=== PATIENT | female | born 1975 | race Asian ===

== ENCOUNTER 2019-11-02 14:21 | Emergency (ER) | payer OTHER, SELFPAY ==
--- NOTE | 2019-11-02 14:41 | ED.GENADULT ---
HPI - General Adult General Chief complaint: Shortness of Breath/Dyspnea Stated complaint: Hard time swallowing/ higher heart rate Time Seen by Provider: 11/02/19 14:27 Source: patient Mode of arrival: Ambulatory Limitations: no limitations History of Present Illness HPI narrative: 44-year-old female here for evaluation of palpitations and problems swallowing. She states that her symptoms happened last night and continued throughout the evening. She states she feels better now than which she did last evening. She did have the ENTs come and evaluate her and they did an EKG and she was told that it was unremarkable. She has had symptoms like this in the past. Has seen her primary doctor. Was sent in to see Ear Nose and Throat for the dysphagia issues and was told that everything was fine. She does have an appointment scheduled for speech pathology however has not scheduled this appointment as of yet. Related Data Previous Rx's Medication Instructions Recorded lorazepam [Ativan] 0.5 mg PO BID PRN #7 tab 11/02/19 Allergies Allergy/AdvReac Type Severity Reaction Status Date / Time oxycodone [OXYCODONE] AdvReac Intermediate dizziness/n Unverified 03/09/18 14:19 ausea Review of Systems Constitutional Constitutional: Denies chills, Denies fatigue and Denies fever(s) ENT Ears, Nose, Mouth, and Throat: Reports dysphagia and Denies sore throat Cardiovascular Cardiovascular: Denies chest pain and Denies dyspnea Respiratory Respiratory: Denies dyspnea Gastrointestinal Gastrointestinal: Denies abdominal pain, Reports dysphagia, Denies nausea and Denies vomiting Musculoskeletal Musculoskeletal: Denies myalgias and Denies arthralgias Integumentary/Breasts Skin/Breast: Denies lesions and Denies rash Endocrine Endocrine: Denies fatigue Hematologic/Lymphatic Hematologic/Lymphatic: Denies easy bleeding and Denies easy bruising Patient History Medical History Fibroid uterus (Inactive) Menorrhagia (Inactive) UTI (urinary tract infection) (Inactive) Surgical History (Updated 03/03/18 @ 10:52 by Leah Chaney) History of gynecologic surgery (Resolved) History of third molar tooth extraction (Resolved 09/28/15) Family History Father No problems noted. Social History Smoking Status: Never smoker Smoking Status: Never smoker Exam Initial Vital Signs Initial Vital Signs: Vital Signs Temperature 99.0 F 11/02/19 14:42 Pulse Rate 93 H 11/02/19 14:42 Respiratory Rate 18 11/02/19 14:42 Blood Pressure 125/87 11/02/19 14:42 Pulse Oximetry 100 11/02/19 14:42 Const General: cooperative and comfortable Limitations: mental status not altered HENMT Head: normal to inspection and normocephalic Nose: external nose normal Neck Neck: full ROM and no meningeal signs Thyroid: thyroid normal Lymphatic: No lymphadenopathy Resp Effort & Inspection: normal respiratory effort Auscultation: clear to auscultation bilaterally Cardio Rate: regular rate Rhythm: regular rhythm GI Inspection: non-distended Palpation: soft and No firm Skin Lesions: no lesions Rashes: no rashes Neuro General: alert and awake Speech: speech normal Extrem General: normal to inspection and capillary refill normal Course Orders Ordered: ED Orders 11/02/19 14:30 EKG-12 Lead Stat 11/02/19 15:24 XR soft tissue neck Stat Vital Signs Vital signs: Vital Signs - 8 hr 11/02/19 14:42 11/02/19 15:32 Temperature 99.0 F Pulse Rate 93 H 94 H Respiratory Rate 18 16 Blood Pressure 125/87 Blood Pressure [Left Arm] 117/84 Pulse Oximetry 100 99 Medical Decision Making Imaging Data XR soft tissue neck: Radiologist's Impression: [address] [address] XRay Report Signed Patient: Gopal Cruz [facility]#: [id number] : 1975Acct:[id number] Age/Sex: 44 / FDate of Service: 11/02/19 Loc: ED Accession Number: [id number] Procedure: XR soft tissue neck Ordering Provider: Matthew Brand D.O. PROCEDURE: XR SOFT TISSUE NECK INDICATIONS: Dysphasia TECHNIQUE: 2 views of the neck were acquired. COMPARISON: None. FINDINGS: Airway: The airway appears patent. Soft tissues: Prevertebral soft tissues are normal in thickness. The epiglottis and aryepiglottic folds appear normal. No soft tissue gas. Bones: No suspicious bony lesions. Visualized cervical spine is normally aligned. IMPRESSION: No gross neck soft tissue swelling. Airway is patent. Dictated by: Darwin Kulkarni M.D. on 11/02/2019 at 15:54 Approved by: Darwin Kulkarni M.D. on 11/02/2019 at 15:57 ECG Data Attestation: I personally reviewed and interpreted this ECG as follows: Prior ECG tracings: not available for review Interpretation: Sinus rhythm Ventricular rate 85 Normal QRS Normal QTC No ST T wave changes MDM Narrative Medical decision making narrative: Is nontoxic, tolerating her own secretions, clear lungs, EKG is unremarkable, informed the patient that she should talk with her primary doctor about a Holter monitor. Unsure the etiology of her dysphagia. She is speaking well. Not hypoxic. I feel we could hold on further workup for now. I do feel that the lump she is feeling on the right side of her neck is a lymph node. Low suspicion for abscess. Patient was reassured. Will send home with anxiety medicines she states that her symptoms make her very anxious. She was given return precautions and follow-up instructions. She expressed understanding and agreement. Discharge Plan Departure Patient Disposition: Home Clinical Impression: Palpitations Dysphagia Qualifiers: Dysphagia type: unspecified Qualified Code(s): R13.10 - Dysphagia, unspecified Activity Restrictions/Additional Instructions: Recommend that you contact your primary doctor to discuss a Holter monitor had also to discuss further workup of your problems swallowing. Take the medications as directed. Return to the emergency department for any new symptoms. Prescriptions: New lorazepam [Ativan] 0.5 mg tablet 0.5 mg PO BID PRN (Reason: anxiety) Qty: 7 RF: 0 Referrals: Matthew Mitchell [Primary Care Provider] -
[2019-11-02 14:42] VITALS: BP 125/87; PULSE 93; RESP 18; TEMP 37.2; O2SAT 100; BMI 23.6
--- NOTE | 2019-11-02 15:24 | DI.RAD.S_ITS ---
PROCEDURE: XR SOFT TISSUE NECK INDICATIONS: Dysphasia TECHNIQUE: 2 views of the neck were acquired. COMPARISON: None. FINDINGS: Airway: The airway appears patent. Soft tissues: Prevertebral soft tissues are normal in thickness. The epiglottis and aryepiglottic folds appear normal. No soft tissue gas. Bones: No suspicious bony lesions. Visualized cervical spine is normally aligned. IMPRESSION: No gross neck soft tissue swelling. Airway is patent. Dictated by: Darwin Kulkarni M.D. on 11/02/2019 at 15:54 Approved by: Darwin Kulkarni M.D. on 11/02/2019 at 15:57
[2019-11-02 15:32] VITALS: BP 117/84; PULSE 94; RESP 16; O2SAT 99
[2019-11-02 17:04] VITALS: BP 112/70; PULSE 85; RESP 12; O2SAT 100
== END 2019-11-02 16:45 | disposition home or self-care (01) ==
PROVIDERS: Emergency Provider Emergency Medicine; Family Provider Family Medicine; PCP Family Medicine
DX: R00.2 Palpitations (principal); R13.10 Dysphagia, unspecified
CPT/HCPCS: 70360; 93005; 99282; 99284

== ENCOUNTER → 2019-11-29 14:42 | Outpatient (CLI) | payer OTHER, SELFPAY ==
--- NOTE | 2019-11-29 | DI.US.S_ITS ---
PROCEDURE: US SOFT TISSUE HEAD AND NECK INDICATIONS: DYSPHAGIA; LUMP TECHNIQUE: Real-time scanning was performed of the neck region of interest, with image documentation. COMPARISON: [facility], CR, XR SOFT TISSUE NECK, 11/02/2019, 15:21. FINDINGS: The area of clinical concern is in the submandibular region where the patient reports a lump that has persisted for 2 months. Scanning in that area shows no solid or cystic mass, or adenopathy. IMPRESSION: No abnormality found by ultrasound. Depending on the clinical status followup by CT or MR scanning without and with contrast may become necessary. Dictated by: Yao Grissom M.D. on 11/29/2019 at 15:36 Approved by: Yao Grissom M.D. on 11/29/2019 at 15:37
== END ==
PROVIDERS: Family Provider Family Medicine; PCP Family Medicine; Referring Provider Family Medicine; Visit Provider Family Medicine
DX: R13.10 Dysphagia, unspecified (principal); R22.1 Localized swelling, mass and lump, neck
CPT/HCPCS: 76536

== ENCOUNTER → 2020-03-20 11:02 | Outpatient (CLI) | payer OTHER, SELFPAY ==
--- NOTE | 2020-03-20 | DI.CT.S_ITS ---
PROCEDURE: CT SOFT TISSUE NECK WO/W CON INDICATIONS: Localized swelling, mass and lump, neck TECHNIQUE: Before and after the administration of intravenous contrast, 2.0 mm axial sections acquired through the neck and down to the sarah beth. Additional 2.0 mm coronal and sagittal reformats were generated of the contrast enhanced images. For radiation dose reduction, the following was used: automated exposure control. COMPARISON: [facility], US, US SOFT TISSUE HEAD AND NECK, 11/29/2019, 14:49. [facility], CR, XR SOFT TISSUE NECK, 11/02/2019, 15:21. FINDINGS: Image quality: Excellent. Lymph nodes: No enlarged lymph nodes seen throughout the neck. Vessels: Visualized vasculature appears patent. Neck spaces: The oropharynx, nasopharynx, and pharynx demonstrate no mucosal lesions. The vocal cords, false vocal cords, pyriform sinuses, epiglottis, vallecula, and tongue base all appear normal. Extramucosal spaces appear unremarkable. Glands: The area of clinical concern is marked, as on series 6 image 34. No focal abnormalities are seen at this site, although there is a normal appearing parotid gland seen just superior to the audra. The parotid glands appear normal. The submandibular glands appear normal. No thyroid abnormality can be seen. Miscellaneous: Visualized lungs appear clear. Superficial soft tissues appear normal. Bones: No suspicious bony lesions. Visualized sinuses and mastoids appear unremarkable. IMPRESSION: No masses or enlarged lymph nodes are seen at the area of clinical concern. No masses or enlarged lymph nodes are seen elsewhere. No significant CT abnormality is seen. Dictated by: Canelo Sibley M.D. on 03/20/2020 at 11:22 Approved by: Canelo Sibley M.D. on 03/20/2020 at 11:24
== END ==
PROVIDERS: Family Provider Family Medicine; PCP Family Medicine; Referring Provider Family Medicine; Visit Provider Family Medicine
DX: R22.1 Localized swelling, mass and lump, neck (principal)
CPT/HCPCS: 70492; Q9967

== ENCOUNTER → 2020-12-10 12:32 | Outpatient (CLI) | payer OTHER, SELFPAY ==
--- NOTE | 2020-12-10 | DI.US.S_ITS ---
PROCEDURE: US PELVIC COMPLETE INDICATIONS: LEFT OVARIAN CYST TECHNIQUE: Real-time scanning was performed of the pelvic organs, with image documentation. Additional endovaginal scanning was necessary due to incomplete visualization of the adnexal and endometrial structures by transabdominal scanning. COMPARISON: [facility], US, US PELVIC COMPLETE, 03/09/2018, 9:39. [facility]ound, US, US PELVIC COMPLETE WITH TRANSVAGINAL, 10/10/2020, 12:48. FINDINGS: Uterus: Removed. Ovaries: The right ovary measures 2.6 x 1.2 x 1.6 cm. The left ovary measures 2.4 x 1.4 x 2.1 cm and demonstrates a complex nonvascular focus that measures 1.3 x 0.6 x 1.3 cm, which previously measured 1.3 x 1.5 x 0.9 cm. The ovaries have a normal sonographic appearance. No adnexal masses are seen. Other: No pathologic free abdominal or pelvic fluid. IMPRESSION: Interval decrease in size of the previously seen left ovarian complex cyst, which is likely related to a resolving hemorrhagic cyst. Status post hysterectomy. Dictated by: Canelo Sibley M.D. on 12/10/2020 at 12:54 Approved by: Canelo Sibley M.D. on 12/10/2020 at 12:55
== END ==
PROVIDERS: Family Provider Family Medicine; PCP Family Medicine; Referring Provider Family Medicine; Visit Provider Family Medicine
DX: N83.292 Other ovarian cyst, left side; Z90.710 Acquired absence of both cervix and uterus
CPT/HCPCS: 76830; 76856

== ENCOUNTER → 2021-06-27 11:21 | Outpatient (CLI) | payer OTHER, MEDICAID, SELFPAY ==
[2021-06-27 19:44] LABS: Add Manual Diff / Slide Review NO; Basophils Absolute Auto 0 /uL (0-100); Basophils Percent Auto 0.7 % (0-2); Eosinophils Absolute Auto 100 /uL (0-450); Eosinophils Percent Auto 2.2 % (2-4); Hematocrit 35.4 % (36-46); Hemoglobin 12.1 g/dL (12.0-16.0); Lymphocytes Absolute Auto 2000 /uL (1100-4500); Lymphocytes Percent Auto 33.9 % (25-40); Mean Corpuscular HGB Conc 34.2 % (30-36); Mean Corpuscular Hemoglobin 32.3 PG (26-34); Mean Corpuscular Volume 94.2 fL (80-100); Monocytes Absolute Auto 400 /uL (0-900); Monocytes Percent Auto 7.2 % (3-14); Neutrophils Absolute Auto 3400 /uL (1500-7000); Platelet Count 263 X10^3/uL (150-400); Red Blood Cell Count 3.76 X10^6/uL (4.0-5.2); Red Cell Distribution Width 12.4 % (11.6-14.8)
[2021-06-27 19:46] LABS: Alanine Aminotransferase 18 IU/L (<35); Albumin 4.5 g/dL (3.5-5.0); Albumin Globulin Ratio 1.6 (1.0-2.8); Alkaline Phosphatase 41 U/L (38-126); Aspartate Aminotransferase 25 IU/L (14-36); BUN Creatinine Ratio 22.6 (6-22); Bilirubin Total 0.8 mg/dL (0.2-1.3); Blood Urea Nitrogen 12 mg/dL (7-17); Calcium 9.9 mg/dL (8.4-10.2); Carbon Dioxide 30 mmol/L (22-32); Chloride 102 mmol/L (98-107); Estimated Glomerular Filt Rate > 60.0 mL/min (>60); Globulin 2.8 g/dL (1.7-4.1); Glucose 69 mg/dL (70-100); HEMOLYSIS < 15 (0-50); Potassium 3.7 mmol/L (3.4-5.1); Sodium 140 mmol/L (137-145); Total Protein 7.3 g/dL (6.3-8.2)
[2021-06-27 19:53] LABS: HEMOLYSIS < 15 (0-50); Iron 74 ug/dL (37-170)
[2021-06-27 20:02] LABS: Percent Iron Saturation 26 % (15-50); Total Iron Binding Capacity 280 ug/dL (265-497); Transferrin 235 mg/dL (206-381)
[2021-06-27 20:08] LABS: Free T3, Triiodothyronine Free 3.04 pg/mL (2.77-5.27)
[2021-06-27 20:14] LABS: Ferritin 182 ng/mL (6-137)
[2021-06-27 20:23] LABS: TSH w/ Reflex to FT4 1.54 uIU/mL (0.47-4.68)
== END ==
PROVIDERS: Family Provider Family Medicine; PCP Family Medicine; Referring Provider Family Medicine; Visit Provider Family Medicine
DX: D64.9 Anemia, unspecified (principal); K21.9 Gastro-esophageal reflux disease without esophagitis; R00.2 Palpitations
CPT/HCPCS: 80053; 82728; 83540; 83550; 84443; 84481; 85025

== ENCOUNTER → 2021-10-19 10:27 | Outpatient (CLI) | payer OTHER, MEDICAID, SELFPAY ==
--- NOTE | 2021-10-19 10:29 | DI.MG.S_ITS ---
BILATERAL DIGITAL SCREENING MAMMOGRAM 3D/2D WITH CAD: 10/19/2021 CLINICAL: Routine screening. Comparison is made to exams dated: 12/07/2015 mammogram and 02/13/2012 mammogram - [facility]. The tissue of both breasts is extremely dense, which lowers the sensitivity of mammography. Current study was also evaluated with a Computer Aided Detection (CAD) system. No significant masses, calcifications, or other findings are seen in either breast. There has been no significant interval change. IMPRESSION: NEGATIVE There is no mammographic evidence of malignancy. A 1 year screening mammogram is recommended. This exam was interpreted at Station ID: [id number]. NOTE: For mammograms, a report in lay terms will be sent to the patient. Approximately 15% of breast malignancies will not be visualized mammographically. In the management of a palpable breast mass, a negative mammogram must not discourage biopsy of a clinically suspicious lesion. Electronically Signed By: Matheus lemus/catia:10/21/2021 09:38:31 letter sent: Normal Exam ACR BI-RADS Category 1: Negative 3341F
== END ==
PROVIDERS: Family Provider Family Medicine; PCP Family Medicine; Referring Provider Family Medicine; Visit Provider Family Medicine
DX: Z12.31 Encounter for screening mammogram for malignant neoplasm of breast (principal)
CPT/HCPCS: 77063; 77067

== ENCOUNTER → 2022-06-12 14:15 | Outpatient (CLI) | payer OTHER, MEDICAID, SELFPAY ==
[2022-06-12 19:43] LABS: C-Reactive Protein Quant < 0.5 mg/dL (<1.0)
[2022-06-12 19:44] LABS: Rheumatoid Factor < 8.6 IU/mL (<12.0)
[2022-06-12 20:28] LABS: Erythrocyte Sedimentation Rate 7 MM/HR (0-20)
[2022-06-17 17:57] LABS: ANA Screen, IFA Negative (.)
== END ==
PROVIDERS: Family Provider Family Medicine; PCP Family Medicine; Visit Provider Family Medicine
DX: M25.50 Pain in unspecified joint (principal)
CPT/HCPCS: 85651; 86038; 86140; 86430

== ENCOUNTER → 2022-07-17 09:36 | Outpatient (CLI) | payer OTHER, MEDICAID, SELFPAY ==
[2022-07-17 18:56] LABS: Add Manual Diff / Slide Review NO; Basophils Absolute Auto 0 /uL (0-100); Eosinophils Absolute Auto 100 /uL (0-450); Hematocrit 35.7 % (36-46); Hemoglobin 12.2 g/dL (12.0-16.0); Lymphocytes Absolute Auto 1600 /uL (1100-4500); Lymphocytes Percent Auto 39.9 % (25-40); Mean Corpuscular HGB Conc 34.2 % (30-36); Mean Corpuscular Hemoglobin 31.9 PG (26-34); Mean Corpuscular Volume 93.2 fL (80-100); Monocytes Absolute Auto 300 /uL (0-900); Monocytes Percent Auto 7.1 % (3-14); Neutrophils Absolute Auto 1900 /uL (1500-7000); Platelet Count 299 X10^3/uL (150-400); Red Blood Cell Count 3.83 X10^6/uL (4.0-5.2); Red Cell Distribution Width 12.9 % (11.6-14.8); White Blood Cell Count 3.9 X10^3/uL (4.5-11.0)
[2022-07-17 19:04] LABS: BUN Creatinine Ratio 15.3 (6-22); Blood Urea Nitrogen 9 mg/dL (7-17); Calcium 9.1 mg/dL (8.4-10.2); Carbon Dioxide 30 mmol/L (22-32); Chloride 103 mmol/L (98-107); Cholesterol 178 mg/dL (140-199); Estimated Glomerular Filt Rate > 60 mL/min (>60); Glucose 96 mg/dL (70-100); HDL Cholesterol 54 mg/dL (40-60); HEMOLYSIS < 15 (0-50); LDL Cholesterol Calculated 115 mg/dL (<100); Potassium 3.9 mmol/L (3.4-5.1); Sodium 139 mmol/L (137-145); Triglycerides 43 mg/dL (35-150)
[2022-07-17 19:31] LABS: TSH w/ Reflex to FT4 1.07 uIU/mL (0.47-4.68)
== END ==
PROVIDERS: Family Provider Family Medicine; PCP Family Medicine; Visit Provider Family Medicine
DX: D50.8 Other iron deficiency anemias (principal); F41.1 Generalized anxiety disorder; F51.01 Primary insomnia; Z13.1 Encounter for screening for diabetes mellitus; Z13.220 Encounter for screening for lipoid disorders; Z13.6 Encounter for screening for cardiovascular disorders
CPT/HCPCS: 80048; 80061; 84443; 85025

== ENCOUNTER → 2023-04-07 09:18 | Outpatient (CLI) | payer OTHER, MEDICAID, SELFPAY ==
--- NOTE | 2023-04-07 09:20 | DI.CT.S_ITS ---
PROCEDURE: CT SOFT TISSUE NECK WO CON INDICATIONS: mass of the right side of neck TECHNIQUE: Non-contrast 3.0 mm axial sections acquired from the sella to the aortic arch. 3 mm thick coronal and sagittal reformats were generated. For radiation dose reduction, the following was used: automated exposure control. Palpable area of concern was marked on the skin with a metallic skin marker Please note, lack of intravenous contrast limits assessment of solid and vascular structures, particularly for neoplasm and trauma. COMPARISON: None. FINDINGS: Skull Base: The visualized intracranial contents, skull, and orbits are unremarkable. Visualized paranasal sinuses are clear. Pharynx and Larynx: The nasopharyngeal airway is patent and midline. Parapharyngeal soft tissues including palatine tonsils and base of the tongue are normal. Retropharyngeal space unremarkable. Normal appearance of the false and true vocal cords. Muscles and Fascial Planes: Fascial planes are well maintained. No abscess or mass lesion. Lymph Nodes: There is a small level 2A node on the right roughly corresponding with the skin marker measuring 1.0 x 0.7 cm. No evidence of adenopathy. Vasculature: Unremarkable. Submandibular and Parotid Glands: Normal in size and attenuation. Thyroid: Unremarkable. No enlarged or calcified nodules. Bones: No acute fracture. No osteolytic or blastic lesion is evident. Normal bone mineralization. Lung Apices: The visualized lung apices are clear. IMPRESSION: 1. Marked area of concern roughly corresponds with a small normally sized right level 2A lymph node. No adenopathy or noncontrast suggestion mass lesion. Approved by: Fredi Villarreal M.D. on 04/07/2023 at 12:44
== END ==
PROVIDERS: Family Provider Family Medicine; PCP Family Medicine; Referring Provider Family Medicine; Visit Provider Family Medicine
DX: R22.1 Localized swelling, mass and lump, neck (principal)
CPT/HCPCS: 70490

== ENCOUNTER → 2023-09-10 13:13 | Outpatient (CLI) | payer OTHER, MEDICAID, SELFPAY ==
[2023-09-10 20:45] LABS: Add Manual Diff / Slide Review NO; Basophils Absolute Auto 100 /uL (0-100); Basophils Percent Auto 1.1 % (0-2); Eosinophils Absolute Auto 200 /uL (0-450); Eosinophils Percent Auto 3.7 % (2-4); HEMOLYSIS < 15 (0-50); Hematocrit 36.2 % (36-46); Hemoglobin 12.1 g/dL (12.0-16.0); Iron 82 ug/dL (37-170); Lymphocytes Absolute Auto 1900 /uL (1100-4500); Lymphocytes Percent Auto 39.1 % (25-40); Mean Corpuscular HGB Conc 33.5 % (30-36); Mean Corpuscular Hemoglobin 31.3 PG (26-34); Mean Corpuscular Volume 93.5 fL (80-100); Monocytes Absolute Auto 400 /uL (0-900); Monocytes Percent Auto 8.7 % (3-14); Neutrophils Absolute Auto 2300 /uL (1500-7000); Neutrophils Percent Auto 47.4 % (50-75); Platelet Count 326 X10^3/uL (150-400); Red Blood Cell Count 3.87 X10^6/uL (4.0-5.2); Red Cell Distribution Width 12.7 % (11.6-14.8); White Blood Cell Count 4.8 X10^3/uL (4.5-11.0)
[2023-09-10 20:59] LABS: Percent Iron Saturation 32 % (15-50); Total Iron Binding Capacity 254 ug/dL (265-497); Transferrin 199 mg/dL (206-381)
[2023-09-10 21:19] LABS: TSH w/ Reflex to FT4 1.24 uIU/mL (0.47-4.68)
[2023-09-10 22:04] LABS: Folate > 20.0 ng/mL (2.76-20.0); Vitamin B12 648 pg/mL (239-931)
== END ==
PROVIDERS: Family Provider Family Medicine; PCP Family Medicine; Visit Provider Family Medicine
DX: R49.0 Dysphonia (principal); R22.1 Localized swelling, mass and lump, neck; D64.9 Anemia, unspecified; Z87.19 Personal history of other diseases of the digestive system; K21.9 Gastro-esophageal reflux disease without esophagitis
CPT/HCPCS: 82607; 82746; 83540; 83550; 84443; 85025

== ENCOUNTER → 2024-04-19 09:57 | Outpatient (CLI) | payer OTHER, MEDICAID, SELFPAY ==
--- NOTE | 2024-04-19 09:59 | DI.MG.S_ITS ---
BILATERAL DIGITAL SCREENING MAMMOGRAM 3D/2D WITH CAD: 04/19/2024 CLINICAL: Routine screening. Comparison is made to exam dated: [facility]. Both breasts are extremely dense, which lowers the sensitivity of mammography (category d />75% glandular tissue). Current study was also evaluated with a Computer Aided Detection (CAD) system. No significant masses, calcifications, or other findings are seen in either breast. There has been no significant interval change. IMPRESSION: NEGATIVE There is no mammographic evidence of malignancy. A 1 year screening mammogram is recommended. Based on the Tyrer Cuzick model (a risk assessment model) the patient's lifetime risk is 10.2% and her 10 year risk is 2.0%. According to the ACR, ACS, and NCCN guidelines, an annual breast MRI exam along with mammogram is recommended if the patient's lifetime risk is 20% or greater. This exam was interpreted at Station ID: [id number]. NOTE: For mammograms, a report in lay terms will be sent to the patient. Approximately 15% of breast malignancies will not be visualized mammographically. In the management of a palpable breast mass, a negative mammogram must not discourage biopsy of a clinically suspicious lesion. Electronically Signed By: Matheus lemus/catia:04/19/2024 12:48:44 copy to: Manisha Bell letter sent: Normal Exam ACR BI-RADS Category 1: Negative 3341F
== END ==
PROVIDERS: Family Provider Family Medicine; PCP Family Medicine; Referring Provider Family Medicine; Visit Provider Family Medicine
DX: Z12.31 Encounter for screening mammogram for malignant neoplasm of breast (principal); R92.323 Mammographic fibroglandular density, bilateral breasts
CPT/HCPCS: 77063; 77067

== ENCOUNTER → 2024-05-24 12:51 | Outpatient (CLI) | payer OTHER, MEDICAID, SELFPAY | PROVIDERS: Family Provider Family Medicine; PCP Family Medicine; Visit Provider Physician Assistant Medical | DX: N89.8 Other specified noninflammatory disorders of vagina (principal); R30.0 Dysuria | CPT/HCPCS: 87086 ==

== ENCOUNTER → 2024-11-17 09:30 | Outpatient (CLI) | payer OTHER, MEDICAID, SELFPAY ==
[2024-11-17 19:21] LABS: Add Manual Diff / Slide Review NO; Basophils Absolute Auto 0 /uL (0-100); Basophils Percent Auto 0.6 % (0-2); Eosinophils Absolute Auto 200 /uL (0-450); Eosinophils Percent Auto 4.6 % (2-4); Hematocrit 36.6 % (36-46); Hemoglobin 12.3 g/dL (12.0-16.0); Lymphocytes Absolute Auto 1700 /uL (1100-4500); Lymphocytes Percent Auto 45.8 % (25-40); Mean Corpuscular HGB Conc 33.7 % (30-36); Mean Corpuscular Hemoglobin 31.1 PG (26-34); Mean Corpuscular Volume 92.3 fL (80-100); Monocytes Absolute Auto 300 /uL (0-900); Monocytes Percent Auto 8.5 % (3-14); Neutrophils Absolute Auto 1500 /uL (1500-7000); Neutrophils Percent Auto 40.5 % (50-75); Platelet Count 262 X10^3/uL (150-400); Red Blood Cell Count 3.96 X10^6/uL (4.0-5.2); Red Cell Distribution Width 13.6 % (11.6-14.8); White Blood Cell Count 3.8 X10^3/uL (4.5-11.0)
[2024-11-17 19:31] LABS: Alanine Aminotransferase 21 IU/L (<35); Albumin 4.5 g/dL (3.5-5.0); Albumin Globulin Ratio 1.7 (1.0-2.8); Alkaline Phosphatase 54 U/L (38-126); Aspartate Aminotransferase 27 IU/L (14-36); BUN Creatinine Ratio 19.7 (6-22); Bilirubin Total 0.8 mg/dL (0.2-1.3); Blood Urea Nitrogen 12 mg/dL (7-17); Calcium 9.5 mg/dL (8.4-10.2); Carbon Dioxide 32 mmol/L (22-32); Chloride 99 mmol/L (98-107); Cholesterol 194 mg/dL (140-199); Estimated Glomerular Filt Rate > 60 mL/min (>60); Globulin 2.6 g/dL (1.7-4.1); Glucose 98 mg/dL (70-100); HDL Cholesterol 57 mg/dL (40-60); HEMOLYSIS < 15 (0-50); LDL Cholesterol Calculated 123 mg/dL (<100); Potassium 3.9 mmol/L (3.4-5.1); Sodium 137 mmol/L (137-145); Total Protein 7.1 g/dL (6.3-8.2); Triglycerides 71 mg/dL (35-150)
[2024-11-17 20:02] LABS: TSH w/ Reflex to FT4 1.36 uIU/mL (0.47-4.68)
== END ==
PROVIDERS: Family Provider Family Medicine; PCP Family Medicine; Visit Provider Family Medicine
DX: F51.04 Psychophysiologic insomnia (principal); F41.1 Generalized anxiety disorder; K21.9 Gastro-esophageal reflux disease without esophagitis; Z13.1 Encounter for screening for diabetes mellitus; Z13.6 Encounter for screening for cardiovascular disorders; Z13.220 Encounter for screening for lipoid disorders
CPT/HCPCS: 80053; 80061; 84443; 85025

== ENCOUNTER → 2025-01-04 10:45 | Outpatient (CLI) | payer OTHER, SELFPAY ==
--- NOTE | 2025-01-04 10:46 | DI.MRI.S_ITS ---
PROCEDURE: MR ORBITS FACE NECK WO/W CON INDICATIONS: Odynopahgia, dysphagia, neck mass TECHNIQUE: Sagittal/axial/coronal T1 spin echo and STIR. After the IV administration of 10 milliliters ProHance contrast, axial/coronal/sagittal T1 fast spin echo with fat saturation through the neck. COMPARISON: [facility], CT, CT SOFT TISSUE NECK WO CON, 04/07/2023, 9:32. FINDINGS: Image quality: Excellent. Lymph nodes: No enlarged nodes are seen throughout the neck. Vessels: Visualized vasculature appears normal, with normal flow voids and enhancement. Neck spaces: The oropharynx, nasopharynx and pharynx are unremarkable, without mucosal lesions seen. Vocal cords, false vocal cords, pyriform sinuses, epiglottis, vallecula, and tongue base all appear normal. Extramucosal spaces of the neck also appear unremarkable. No abnormal mass, enlarged lymph nodes or suspicious postcontrast enhancement identified deep to a localizer placed over the right lateral submandibular neck soft tissues at the region of clinical interest. Glands: The parotid and submandibular glands appear normal. Thyroid gland is normal. Miscellaneous: Visualized brain and orbits appear normal. Lung apices appear clear. Superficial soft tissues appear normal. Visualized sinuses and mastoids appear clear. Bones: Marrow has normal overall signal. IMPRESSION: No abnormal mass or suspicious postcontrast enhancement. No lymphadenopathy based on size criteria. Dictated by: Salome Umanzor MD, PhD on 01/04/2025 at 13:06 Approved by: Salome Umanzor MD, PhD on 01/04/2025 at 13:11
== END ==
PROVIDERS: Family Provider Family Medicine; PCP Family Medicine; Referring Provider Family Medicine; Visit Provider Family Medicine
DX: R13.10 Dysphagia, unspecified (principal); R22.1 Localized swelling, mass and lump, neck
CPT/HCPCS: 70543; A9579

== ENCOUNTER → 2025-07-29 10:40 | Outpatient (CLI) | payer OTHER, SELFPAY ==
--- NOTE | 2025-07-29 10:41 | DI.MG.S_ITS ---
MM screening mammo BI: 07/29/2025. BI-RADS: 1 CLINICAL: 50-year old female for bilateral screening mammogram. Tyrer-Cuzick lifetime risk of 13.9%. No personal or first-degree family history of breast cancer. History of ovarian cancer in one first-degree relative. PRIOR EXAMS 04/19/2024, 10/16/2022, 10/19/2021, 12/07/2015. MAMMOGRAPHY TECHNIQUE: 2D and 3D (tomosynthesis) digital mammographic views obtained, with additional images as needed for full coverage. Current study was also evaluated with a Computer Aided Detection (CAD) system. DENSITY D. The breasts are extremely dense, which lowers the sensitivity of mammography. MAMMOGRAPHY FINDINGS Bilateral: No suspicious mass, asymmetry, microcalcification, or other abnormality seen. IMPRESSION: * No evidence of malignancy. RECOMMENDATIONS Bilateral * Annual screening mammography. OVERALL ASSESSMENT CATEGORY BI-RADS-1: Negative. The [employer] recommends annual screening mammography beginning at age 40 for women with average risk of breast cancer. ELECTRONICALLY SIGNED: Chino Chao M.D. on 07/31/2025 at 10:58:01 AM PT Interpreting Station ID: [id number]
== END ==
PROVIDERS: Family Provider Family Medicine; PCP Family Medicine; Referring Provider Family Medicine; Visit Provider Family Medicine
DX: Z12.31 Encounter for screening mammogram for malignant neoplasm of breast (principal); Z80.41 Family history of malignant neoplasm of ovary; R92.343 Mammographic extreme density, bilateral breasts
CPT/HCPCS: 77063; 77067